=== PATIENT | female | born 1995 | race African-American/Black ===

== ENCOUNTER 2021-06-30 07:28 | Emergency (ER) | payer SELFPAY ==
[~2021-06-30] VITALS: Ht 170.2 cm; Wt 91.0 kg
[2021-06-30 09:44] LABS: BASOPHILS % 0.5 % (0.0-2.0); EOSINOPHILS % 0.1 % (0.0-5.0); HEMATOCRIT. 38.6 % (36.0-48.0); LYMPHOCYTES % 25.5 % (20.0-50.0); MEAN CORPUSCULAR HEMOGLOBIN 27.8 pg (28.0-32.0); MEAN CORPUSCULAR VOLUME 82.3 fL (81.0-99.0); MEAN PLATELET VOLUME 8.4 fl (7.4-10.4); MONOCYTES % 7.9 % (2.0-8.0); PLATELET 290 x1000/uL (130-400); RED BLOOD CELL COUNT 4.68 mill/uL (4.2-5.4); RED CELL DISTRIBUTION WIDTH 15.8 % (11.6-14.6)
[2021-06-30 09:49] LABS: CHLORIDE 107 mEq/L (98-107)
[2021-06-30 09:57] LABS: ETHANOL BLOOD < 10 mg/dL
[2021-06-30] MEDS ORDERED: OLANZAPINE 10 MG/VIAL IM ONE (14:00)
[2021-06-30] MEDS ORDERED: LORAZEPAM 2MG/ML CPJ IM ONE ×2 (14:00→23:30)
[2021-06-30] MEDS ORDERED: LORAZEPAM 2MG/ML CPJ IM SCH (15:15)
[2021-06-30] MEDS ORDERED: OLANZAPINE 10 MG/VIAL IM SCH (15:15)
[2021-06-30 22:19] LABS: HCG SCREEN NEGATIVE
[2021-06-30 22:58] LABS: ETHANOL BLOOD < 10 mg/dL
[2021-07-01 10:00] VITALS: BP 110/68
== END 2021-07-01 11:29 | disposition home or self-care (01) ==
LOC: ER 07:28 → EDBD 07:28 → ER 07-01 11:29
DX: F23 Brief psychotic disorder (principal); F91.8 Other conduct disorders; F15.229 Other stimulant dependence with intoxication, unspecified
CPT/HCPCS: 36415; 80053; 80307; 80320; 80329; 84443; 84703; 85025; 96372; 99291; J2060; J3490; Z7610; G0480